=== PATIENT | male | born 1985 | race American Indian/Alaskan Native ===

== ENCOUNTER 2019-01-01 22:06 | Emergency (ER) | payer BC ==
[2019-01-01 22:18] VITALS: BP 104/76
[2019-01-01] MEDS ORDERED: DUONEB *Not for PRN Use IH ONE (22:18)
--- NOTE | 2019-01-01 22:20 | Emergency Department Report ---
Blank Doc - Documentation Documentation: 33 y o male with hx of asthma presents for asthma flare up active coughing states worse in spring season duoneb ordered cxr acc eval
--- NOTE | 2019-01-01 23:11 | XRay Report ---
PROCEDURE: XR CHEST ROUTINE 2V TECHNIQUE: PA and lateral chest radiographs were obtained. HISTORY: sob COMPARISONS: None. FINDINGS: Heart: Normal. Mediastinum/Vessels: Normal. Lungs/Pleural space: Normal. Bony thorax: No acute osseous abnormality. IMPRESSION: There is no evidence of an acute cardiopulmonary process. This document is electronically signed by Melissa Hopper DO., January 01 2019 11:09:33 PM ET
[2019-01-02] MEDS ORDERED: DELTASONE PO ONE (02:44)
[2019-01-02] MEDS ORDERED: TYLENOL PO ONE (02:45)
[2019-01-02] MEDS ORDERED: PROVENTIL IH ONE (02:47)
--- NOTE | 2019-01-02 02:48 | Emergency Department Report ---
ED Shortness of Breath HPI - General Chief Complaint: Adult Asthma Stated Complaint: DIFFICULTY, CHEST PAIN Time Seen by Provider: 01/01/19 22:18 Source: patient Mode of arrival: Ambulatory Limitations: No Limitations - History of Present Illness Initial Comments: 33-year-old -[place] male presents to the emergency room for shortness of breath 2 hours. Patient reports that he feels like his asthma is flaring up. Patient reports that he was seen by urgent care last week and was placed on antibiotics but was not given an inhaler. Patient denies any fever chills no nausea no vomiting. Patient does admit to a past medical history of asthma but no medication for it. Patient does not have a primary care provider. MD Complaint: shortness of breath -: This evening Consistency: intermittent Improves With: bronchodilators Worsens With: nothing Known History Of: asthma Associated Symptoms: chest pain Treatments Prior to Arrival: none - Related Data Home Oxygen Therapy: No Previous Rx's Medication Instructions Recorded Last Taken Type Albuterol Sulfate [Ventolin Hfa] 18 gm IH QID PRN #1 hfa.aer.ad 01/02/19 Unknown Rx predniSONE [Prednisone] 50 mg PO QDAY #3 tablet 01/02/19 Unknown Rx Allergies Allergy/AdvReac Type Severity Reaction Status Date / Time No Known Allergies Allergy Unverified 01/01/19 22:09 ED Review of Systems ROS: Stated complaint: DIFFICULTY, CHEST PAIN Other details as noted in HPI Comment: All other systems reviewed and negative ED Past Medical Hx - Past Medical History Previous Medical History?: Yes Hx Asthma: Yes - Surgical History Past Surgical History?: Yes - Social History Smoking Status: Current Every Day Smoker Substance Use Type: None - Medications Home Medications: Home Medications Medication Instructions Recorded Confirmed Last Taken Type Albuterol Sulfate [Ventolin Hfa] 18 gm IH QID PRN #1 hfa.aer.ad 01/02/19 Unknown Rx predniSONE [Prednisone] 50 mg PO QDAY #3 tablet 01/02/19 Unknown Rx ED Physical Exam - General Limitations: No Limitations General appearance: alert, in no apparent distress - Head Head exam: Present: atraumatic, normocephalic - Eye Eye exam: Present: normal appearance, EOMI - ENT ENT exam: Present: mucous membranes moist - Neck Neck exam: Present: normal inspection - Respiratory Respiratory exam: Present: normal lung sounds bilaterally. Absent: respiratory distress - Cardiovascular Cardiovascular Exam: Present: regular rate, normal rhythm. Absent: systolic murmur, diastolic murmur, rubs, gallop - GI/Abdominal GI/Abdominal exam: Present: soft, normal bowel sounds - Rectal Rectal exam: Present: deferred - Extremities Exam Extremities exam: Present: normal inspection - Back Exam Back exam: Present: normal inspection - Neurological Exam Neurological exam: Present: alert, oriented X3 - Psychiatric Psychiatric exam: Present: normal affect, normal mood - Skin Skin exam: Present: warm, dry, intact, normal color. Absent: rash ED Course Vital Signs 01/01/19 22:15 Temperature 97.9 F Pulse Rate 67 Respiratory 20 Rate Blood Pressure 104/76 O2 Sat by Pulse 96 Oximetry ED Medical Decision Making - Radiology Data Radiology results: report reviewed Patient: NICHO BOUCHER MR# : [id number] : 1985 Acct:[id number] Age/Sex: 33 / M ADM Date: 01/01/19 Loc: ED Attending Dr: Ordering Physician: YAKOV MOTA Date of Service: 01/01/19 Procedure(s): XR chest routine 2V Accession Number(s): [id number] cc: YAKOV MOTA Fluoro Time In Minutes: PROCEDURE: XR CHEST ROUTINE 2V TECHNIQUE: PA and lateral chest radiographs were obtained. HISTORY: sob COMPARISONS: None. FINDINGS: Heart: Normal. Mediastinum/Vessels: Normal. Lungs/Pleural space: Normal. Bony thorax: No acute osseous abnormality. IMPRESSION: There is no evidence of an acute cardiopulmonary process. This document is electronically signed by Melissa Hopper DO., January 01 2019 11:09:33 PM ET Transcribed By: [facility] Dictated By: MELISSA HOPPER MD Electronically Authenticated By: MELISSA HOPPER MD Signed Date/Time: 01/01/19 7481 DD/ 46 TD/TT: 01/01/19 4870 Critical care attestation.: If time is entered above; I have spent that time in minutes in the direct care of this critically ill patient, excluding procedure time. ED Disposition Clinical Impression: Asthma Disposition: DC-01 TO HOME OR SELFCARE Is pt being admited?: No Does the pt Need Aspirin: No Condition: Stable Instructions: Asthma (ED) Additional Instructions: Take medications as prescribed. Follow up with the primary care provider I have listed one below for your convenience. Prescriptions: predniSONE [Prednisone] 50 mg PO QDAY #3 tablet Albuterol Sulfate [Ventolin Hfa] 18 gm IH QID PRN #1 hfa.aer.ad PRN Reason: Shortness Of Breath Referrals: TARA EATON MD [Staff Physician] - 3-5 Days Forms: Work/School Release Form(ED)
== END 2019-01-02 03:10 | disposition home or self-care (01) ==
LOC: ED 22:06
DX: J45.909 Unspecified asthma, uncomplicated (principal); F17.200 Nicotine dependence, unspecified, uncomplicated
CPT/HCPCS: 71046; 94640; 99283; J7512